=== PATIENT | female | born 1990 | race Caucasian/White ===

== ENCOUNTER 2016-06-13 04:05 | Inpatient (IN) | payer OTHER ==
[~2016-06-13] VITALS: Ht 170.2 cm; Wt 79.4 kg
[~2016-06-13 04:05] MED LIST: CHOL40003 PO; DOCU-41 PO; IBUP-1827 PO; PREN-20 PO
[2016-06-13] MEDS ORDERED: Oxytocin 30 Units/500 mL LR Premix IV ONE (04:30)
[2016-06-13] MEDS ORDERED: Lactated Ringer's 1,000 ML IV ONE (04:30)
[2016-06-13] MEDS ORDERED: Lactated Ringer's 1,000 ML IV PRN (04:32)
[2016-06-13] MEDS ORDERED: Carboprost 250 mCg/mL Inj IM PRN ×2 (04:35→07:05)
[2016-06-13] MEDS ORDERED: Hemorrhage Kit, Post Partum XX ONE ×2 (04:35→07:05)
[2016-06-13] MEDS ORDERED: Sodium Chloride LOK Flush 10 mL Syringe IVFLUSH PRN (04:35)
[2016-06-13] MEDS ORDERED: Methylergonovine 0.2 mg/mL Inj IM PRN ×2 (04:35→07:05)
[2016-06-13] MEDS ORDERED: Oxytocin 30 Units/500 mL LR 30 UNITS in IV Premix 1 EACH IV PRN ×2 (04:35→07:05)
[2016-06-13] MEDS ORDERED: Oxytocin 10 Unit/mL Inj IM PRN ×2 (04:35→07:05)
[2016-06-13 04:58] LABS: Mean Corpuscular Hemoglobin 32.6 pg (27.0-35.0); Mean Corpuscular Volume 94.7 fL (81-100)
[2016-06-13] MEDS ORDERED: Lactated Ringer's 500 ML IV ONE (05:18)
[2016-06-13] MEDS ORDERED: Lactated Ringer's 1,000 ML IV SCH ×2 (05:18→07:05)
[2016-06-13] MEDS ORDERED: Ondansetron 2 mg/mL 2 mL Inj IVPUSH PRN (05:20)
[2016-06-13] MEDS ORDERED: EPHEDrine Sulfate 50 mg/mL Inj IVPUSH PRN (05:20)
[2016-06-13] MEDS ORDERED: fentaNYL-PF 50 mCg/mL 2 mL Inj IVPUSH PRN (05:20)
[2016-06-13] MEDS ORDERED: fentaNYL 2 mCg/mL-Bupiv 0.125% 100 ML EPIDURAL SCH (05:20)
[2016-06-13] MEDS ORDERED: Atropine 1 mg/10 mL (Code) Syringe IVPUSH PRN (05:20)
--- NOTE | 2016-06-13 05:52 | PCM.ANEPRE ---
Anesthesia Pre-Op Review Additional Comments Asked to come place epidural. Patient 9cm. Plan CSE or SAB. On my arrival providers in room concerned about decelerations and that delivery needed to proceed expeditiously, so no neuraxial block placed. Frantz Javed MD Jun 13, 2016 05:52
[2016-06-13] MEDS ORDERED: LANOlin HPA 7 Gm Ointment TOPICAL PRN (07:05)
[2016-06-13] MEDS ORDERED: Witch Hazel-Glycerin Pads TOPICAL PRN (07:05)
[2016-06-13] MEDS ORDERED: Benzocaine (Dermoplast) 20% 60 Gm Spray TOPICAL PRN (07:05)
[2016-06-13] MEDS ORDERED: oxyCODONE-Acetamin 5-325 mg Tablet PO PRN (07:05)
[2016-06-13] MEDS: Ascorbic Acid 500 mg Tablet PO SCH ×2 (08:27→20:35)
--- NOTE | 2016-06-13 08:27 | OP ---
[address] [address] OPERATIVE REPORT PATIENT: ELVA JOHNSON : 1990 MR#: [id number] ADMIT: 06/13/2016 JOB ID: [id number] DATE OF SURGERY: 06/13/2016 CHIEF DIAGNOSIS: Precipitous labor within less than 3 hours of presentation to triage. PREOPERATIVE DIAGNOSIS(ES): A 26-year-old 4, para 3-0-0-3, at 40 weeks 4 days gestational age presented in active labor. Developed category 2 heart tracing managed with intrauterine resuscitation measures. Internal IUPC and scalp electrode inserted after artificial rupture of membranes. Progressed to fully dilated, +3 station. POSTOPERATIVE DIAGNOSIS(ES): A 26-year-old 4, para 3-0-0-3, at 40 weeks 4 days gestational age presented in active labor. Developed category 2 heart tracing managed with intrauterine resuscitation measures. Internal IUPC scalp electrode inserted after artificial rupture of membranes. Progressed to fully dilated, +3 station. PROCEDURE: Spontaneous vaginal delivery. SURGEON: Alex Leonrad MD ANESTHESIA: None. ESTIMATED BLOOD LOSS: 300 cc. COMPLICATIONS: None. FINDINGS: single viable male with Apgars 9/9. Weight is still pending. DESCRIPTION OF PROCEDURE: The patient started to push efficiently. Infant head delivered in left occiput anterior position. Tight nuchal cord x1 was noted, clamped and cut at the level of the baby's neck and this released the anterior shoulder as well as the posterior shoulder and rest of the body followed. The baby delivered and placed over mom's chest. Placenta followed spontaneously. Upon inspection, it was noted to be intact with three-vessel cord marginally inserted. Firm uterine fundus at the end of delivery. Inspection of the perineum revealed a second-degree perineal laceration at 5 o'clock and 7 o'clock positions. Total of 10 cc of 1% lidocaine injected for local analgesia and lacerations were repaired using 3-0 chromic and 3-0 Vicryl sutures. Good hemostasis is assured. The patient tolerated the procedure well. Sponge, needle, instrument counts were correct x2. Mom and baby recovering in a stable condition in labor and delivery room. Dr. Leonard was present and scrubbed for the entire procedure. [facility]
[2016-06-13] MEDS ORDERED: Acyclovir 400 mg Tablet PO SCH (08:30)
[2016-06-13] MEDS ORDERED: Sodium Chloride LOK Flush 10 mL Syringe IVFLUSH SCH (08:30)
--- NOTE | 2016-06-13 08:58 | HP ---
[address] [address] HISTORY AND PHYSICAL PATIENT: ELVA JOHNSON : 1990 MR#: [id number] ADMIT: 06/13/2016 JOB ID: [id number] DATE OF ADMISSION: 06/13/2016 ADMISSION DIAGNOSIS: Active labor at term. HISTORY OF PRESENT ILLNESS: The patient is a 26-year-old, 4, para 3-0-0-3, at 40 weeks and 4 days gestational age, admitted in active labor. Presented to triage with bulging membranes and fully dilated cervix, with contractions. Denied any leakage of fluid, denied any vaginal bleeding. Reports movements. PAST OBSTETRICAL HISTORY: 12011: Full-term with spontaneous vaginal delivery. 2- 2012: 38 weeks with spontaneous vaginal delivery. 32014: 40 weeks with spontaneous vaginal delivery. No complications with all the above deliveries. 4- The current . PAST GYNECOLOGIC HISTORY: Denied any history of abnormal Pap smears. Denied any history of STDs. 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 ALLERGIES: No known drug allergies. MEDICATIONS: vitamins. SOCIAL HISTORY: Denied any alcohol consumption. Denied any drugs of abuse. Denies any cigarette smoking. LABORATORIES: O-positive, antibody negative, rubella immune, varicella immune, serology nonreactive, hepatitis B surface antigen negative. HIV nonreactive. GBS cultures negative. PHYSICAL EXAMINATION: The patient is alert, oriented x3. Vital signs are 134/87 for blood pressure, respirations are 14, pulse is 95, temperature 36.3 degrees centigrade. Heart is regular rate and rhythm. Positive S1, S2. Lungs: Clear to auscultation bilaterally. Abdomen: Gravid uterus, nontender. Positive bowel sounds. Lower extremities: No calf tenderness appreciated bilaterally. Cervical exam: Bulging membranes. Artificial rupture of membranes, light meconium obtained. Intrauterine pressure catheter and scalp electrode were inserted. After rupture of the membranes the cervical exam was 9 cm dilated, 90% effaced, -3 station, vertex presentation. heart tracing showing a baseline of 115 beats per minute, positive accelerations with some variable decels, andrew of 60, back to the baseline. This is why the decision was made to artificially rupture membranes and insert internals to evaluate category 2 heart tracing. After doing so, baby had early decels to andrew of 60 beats per minute, back to the baseline, that changed to 110 beats per minute, some variable decels as well, andrew of 60 beats per minute, back to the baseline. Oxygen and position changes with IV hydration was started. ASSESSMENT/PLAN: Patient is a 26-year-old, 4, para 3-0-0-3, at 40 weeks and 4 days gestational age admitted in active labor. 1. Category 2 heart tracing, intrauterine resuscitation measures started with insertion of IUPC and scalp electrode after artificial rupture of membranes. 2. Discussed labor analgesia. Patient opted for natural . 3. GBS cultures negative. 4. Expectantly manage patient's labor. All the above discussed in details with the patient, who agreed to the plan. JEANNETTE
[2016-06-14 06:43] LABS: Mean Corpuscular Hemoglobin 32.3 pg (27.0-35.0); Mean Corpuscular Volume 96.8 fL (81-100)
--- NOTE | 2016-06-14 07:40 | PCM.PNOBPP ---
Subjective Date of Service Jun 14, 2016 Post : Spontaneous Vaginal Delivery Visit History Libertad is a G4 now P4 who presented to the center on 06/13/16 at 40weeks and 4 days gestation with contractions. She had a precipitous delivery of a male . She is not a GBS carrier, thus antibiotic prophylaxis was not given. Subjective Libertad reports that she is feeling well and wanting to go home. She has been breast feeding without difficulty, eating without nausea, and ambulating within the room with ease. Lochia: Light Pain Management: PO pain meds (ibuprofen only), No or Minimal Pain Gastrointestinal: Good Appetite, No N/V, Passing Flatus Postop Activity: Ambulating Independently, Ambulating in Room Only Group B Strep Results: Negative Rubella: Immune Blood Type: O RH Type: Positive Labs Laboratory Tests 06/14/16 05:52: White Blood Count 14.0, Red Blood Count 2.85, Hemoglobin 9.2, Hematocrit 27.6, Mean Corpuscular Volume 96.8, Mean Corpuscular Hemoglobin 32.3, Mean Corpuscular Hemoglobin Concent 33.3, Red Cell Distribution Width 12.6, Platelet Count 244 Exam Vital Signs Vital Signs BP 116/66mmHg HR 80 RR 16 Temp 36.5 Vital Signs: VS reviewed, stable Exam Abdomen: Fundus firm (2 fingerbreadths inferior to the umbilicus) : Voiding without difficulty Extremities: No tenderness/swelling, No edema Lungs: Clear to Auscultation, Normal Air Movement Heart: Regular Rate/Rhythm, No Murmurs/Rubs/Gallops General: Alert, Oriented X3, Cooperative, No Acute Distress OB Post Assessment/Plan Assessment Libertad is doing very well post Problems: (1) Spontaneous vaginal delivery Status: Acute ICD Code: O80 (2) Labor, precipitous Status: Acute ICD Code: O62.3 Pain Evaluation: Adequate Pain Control Post plan: Continue routine post care, Anticipate discharge home today Attending Statement I saw patient. I agree with above evaluation and plan Cassie Betancourt DO Jun 14, 2016 07:40 Rain Landa MD Jun 14, 2016 16:04
[2016-06-14] MEDS ORDERED: IBUP-1827 PO (07:55)
[2016-06-14] MEDS ORDERED: DOCU-41 PO (07:55)
[2016-06-14] MEDS ORDERED: Ascorbic Acid PO (07:55)
[2016-06-14] MEDS ORDERED: FERR-74 PO (07:55)
--- NOTE | 2016-06-14 08:02 | PCM.DIOB ---
Cassie Betancourt DO 06/14/16 0802: Obstetrical Disch Instruction Date of Service: Jun 14, 2016 Dates of Hospitalization Date of Hospital Admission Jun 13, 2016 at 04:26 Providers Admitting Physician: Vaibhav Jones MD Primary Care Physician: Marycarmen Monson MD Attending Physician: Vaibhav Jones MD Discharge Diagnosis Problems: (1) Spontaneous vaginal delivery Status: Acute ICD Code: O80 (2) Labor, precipitous Status: Acute ICD Code: O62.3 Diet Discharge Diet: No restrictions Activity Discharge Activity-General: Pelvic Rest for 6 weeks, Be up and about, Balance rest and activity Dressing and Incisional Care Hygiene: May shower, NO bathtub, hot tub or whirlpool, Perineal care, Dermoplast spray, Witch Alexandra pads Additional Instructions Discharge Instructions Continue to take your once daily vitamin as long as you are breast feeding Please take the iron and vitamin c together for your anemia. For pain, take 1 tablet of ibuprofen by mouth every 6 hours as needed. Iron can give you constipation so you have also been given a prescription for docusate to keep you regular. Be sure to follow up [facility] at [facility]. Pelvic rest for 6 weeks (nothing per vagina including intercourse, tampons) If you have a fever greater than 100.4, please call [facility]. There is always someone correctional food service supervisor to talk to. If you have an increase in bleeding, call [facility]. If you have a lot of bleeding suddenly, especially if you have symptoms of dizziness & weakness with it, get emergency help. If you start experiencing extreme depression, especially if you feel that you are a danger to yourself or your family, seek emergency help. You have been through a lot -- BE SURE TO TAKE CARE OF YOURSELF. Follow Up Plan Follow Up Plan Please call to schedule your 6 week post check with [facility] Follow-up Provider (F9): Vaibhav Jones MD Follow-up appointment: Weeks (6) Call your provider for: Fever or Chills, Shortness of breath, Heavy vaginal bleeding, Heavy bleeding, Epigastric pain, Excessive constipation, Vaginal discomfort, Red painful breasts Rain Landa MD 06/14/16 1604: Obstetrical Disch Instruction Attending Statement I saw patient and agree with above evaluation and plan Cassie Betancourt DO Jun 14, 2016 08:02 Rain Landa MD Jun 14, 2016 16:04
--- NOTE | 2016-06-14 08:29 | PCM.DC.OB ---
Obstetrical Discharge Summary Date of Service Jun 14, 2016 Date of hospital admission Jun 13, 2016 at 04:26 Date of Discharge: Jun 14, 2016 Providers Admitting Physician: Vaibhav Jones MD Primary Care Physician: Marycarmen Monson MD Attending Physician: Vaibhav Jones MD Problems: (1) Spontaneous vaginal delivery Status: Acute ICD Code: O80 (2) Labor, precipitous Status: Acute ICD Code: O62.3 Brief History and Physical: Libertad is a G4 now P4 who presented to the center on 06/13/16 at 40weeks and 4 days gestation with contractions. She had a precipitous vaginal delivery of a male infant with a 2nd degree laceration at 5 oclock on the perineum, this was repaired immediately following the delivery. She is not a GBS carrier, thus antibiotic prophylaxis was not given. She has done well post . She has been ambulating independently with ease, breast feeding without difficulty, voiding without difficulty, eating without nausea. She denies any pain with ibuprofen use. Her lochia is light and umbilicus is 2 fingerbreadths inferior to the umbilicus. No pedal edema. Normal vital signs. ([Ascorbic Acid]) 500 MG TABLET 500 MG PO DAILY Prescribed by: CASSIE BETANCOURT DO Cholecalciferol (Vitamin D3) (Vitamin D3) 4,000 Unit Capsule 4,000 UNIT PO ( Reported) Docusate Sodium (Colace) 100 Mg Capsule 100 MG PO DAILY Prescribed by: RAIN LANDA MD Docusate Sodium (Colace) 100 Mg Capsule 100 MG PO BID Prescribed by: CASSIE BETANCOURT DO Ferrous Sulfate (Feosol) 325 Mg Tablet 325 MG PO DAILY Prescribed by: CASSIE BETANCOURT DO Ibuprofen (Ibuprofen) 600 Mg Tablet 600 MG PO Q6H PRN PRN For Mild Pain Prescribed by: RAIN LANDA MD Ibuprofen (Ibuprofen) 600 Mg Tablet 600 MG PO Q6H PRN PRN For Mild Pain Prescribed by: CASSIE BETANCOURT DO Pnv with Ca,No.71/Iron/FA ( Vitamin Tablet) 1 Each Tablet 1 EACH PO ( Reported) Disposition Home with her and son Discharge Diet: No restrictions Discharge Activity-General: Pelvic Rest for 6 weeks, Try not to overdue, Be up and about, Balance rest and activity Patient instructions Continue to take your once daily vitamin as long as you are breast feeding Please take the iron and vitamin c together for your anemia. For pain, take 1 tablet of ibuprofen by mouth every 6 hours as needed. Iron can give you constipation so you have also been given a prescription for docusate to keep you regular. Be sure to follow up in 6 weeks at [facility] for a post check. Pelvic rest for 6 weeks (nothing per vagina including intercourse, tampons) If you have a fever greater than 100.4, please call [facility]. There is always someone promotions specialist to talk to. If you have an increase in bleeding, call [facility]. If you have a lot of bleeding suddenly, especially if you have symptoms of dizziness & weakness with it, get emergency help. If you start experiencing extreme depression, especially if you feel that you are a danger to yourself or your family, seek emergency help. You have been through a lot -- BE SURE TO TAKE CARE OF YOURSELF. Attending Statement: agree with above plan Cassie Betancourt DO Jun 14, 2016 08:23 Rain Landa MD Jul 11, 2016 18:54
[2016-06-14] MEDS: Ascorbic Acid 500 mg Tablet PO SCH (08:43)
[2016-06-14 10:01] VITALS: BP 126/77; PULSE 91; RESP 16
== END 2016-06-14 14:44 | disposition home or self-care (01) | DRG 560 ==
LOC: FBCO 04:05 → FBC 04:26
PROVIDERS: ADMIT Obstetrics & Gynecology; ATTEND Obstetrics & Gynecology
PROC: 0KQM0ZZ Repair Perineum Muscle, Open Approach (ICD-10-PCS; principal; 2016-06-13)
PROC: 10E0XZZ Delivery of Products of Conception, External Approach (ICD-10-PCS; 2016-06-13)
PROC: 10907ZC Drainage of Amniotic Fluid, Therapeutic from Products of Conception, Via Natural or Artificial Opening (ICD-10-PCS; 2016-06-13)
PROC: 10H07YZ Insertion of Other Device into Products of Conception, Via Natural or Artificial Opening (ICD-10-PCS; 2016-06-13)
DX: O70.1 Second degree perineal laceration during delivery (principal); O76 Abnormality in fetal heart rate and rhythm complicating labor and delivery; O62.3 Precipitate labor; O69.1XX0 Labor and delivery complicated by cord around neck, with compression, not applicable or unspecified; Z37.0 Single live birth; Z3A.40 40 weeks gestation of pregnancy

== ENCOUNTER 2017-02-28 20:59 | Emergency (ER) | payer OTHER ==
[~2017-02-28] VITALS: Ht 170.2 cm; Wt 71.8 kg
[~2017-02-28 20:59] MED LIST changes: +Ascorbic Acid PO; +FERR-74 PO
[2017-02-28 21:12] VITALS: BP 136/85; PULSE 102; RESP 12; O2SAT 98
--- NOTE | 2017-02-28 21:36 | ED.REPORT ---
HPI- Female Date of Service Feb 28, 2017 ED Provider: Mayank Bentley DO The pt is a 26 y/o, 11 week , female w/ a hx of hypothyroidism presenting to the ED complaining of vaginal spotting beginning 4 days ago. She describes heavier vaginal bleeding w/ tissue discharge, and abdominal cramping beginning today. Nursing Notes Stated Complaint: POSS MISCARRIAGE Chief Complaint: Vaginal bleeding Nursing Notes Reviewed: Yes Allergies: Coded Allergies: No Known Allergies (Unverified Allergy, Unknown, 02/09/15) Scheduled ([Ascorbic Acid]) 500 MG TABLET 500 MG PO DAILY Docusate Sodium (Colace) 100 Mg Capsule 100 MG PO DAILY Docusate Sodium (Colace) 100 Mg Capsule 100 MG PO BID Ferrous Sulfate (Feosol) 325 Mg Tablet 325 MG PO DAILY Scheduled PRN Ibuprofen (Ibuprofen) 600 Mg Tablet 600 MG PO Q6H PRN PRN For Mild Pain Ibuprofen (Ibuprofen) 600 Mg Tablet 600 MG PO Q6H PRN PRN For Mild Pain Miscellaneous Medications Cholecalciferol (Vitamin D3) (Vitamin D3) 4,000 Unit Capsule 4,000 UNIT PO Pnv with Ca,No.71/Iron/FA ( Vitamin Tablet) 1 Each Tablet 1 EACH PO General Time Seen by MD: 21:35 Chief Complaint Vaginal bleeding... (Moderate) Hx Obtained From: Patient Arrived By: Walk-in Sudden in Onset?: Yes Onset Occurred: 5 - 8 hours ago Symptom Duration: Since onset Recent Healthcare: No recent hospitalization, Recent doctor visit Similar Sx Previous: Yes Past Medical History Past Medical History Hypothyroidism - as of 02/28/17 Past Surgical History None reported Smoking History Never Smoker Social History Alcohol Use: Denies alcohol use Drug Use: Denies drug use Other Social History: Good social support Ambulatory Status Independent Review of Systems + Abdominal cramping; Basic Review of Systems Eyes: Vision NL Respiratory: No shortness of breath Cardiovascular: No chest pain, No dyspnea on exertion Allergy / Immune: No allergy Constitutional: Denies: Chills, Fever GI: Denies: Diarrhea Female: Reports: Vaginal bleeding - abnl (w/ tissue ), Denies: Dysuria, Flank pain Musculoskeletal: Denies: Back pain Skin: Denies Bruising Neurologic: Denies: Abnormal movement Complete sys rev & neg: except as marked. Physical Exam Initial Vital Signs Vital Signs (First) Date Time Temp Pulse Resp B/P Pulse Ox O2 Delivery O2 Flow Rate FiO2 02/28/17 21:12 37.3 102 12 136/85 98 Room Air Initial VS: Reviewed General/Constitutional: Well-developed, Well-nourished Head / Eyes: Atraumatic, Normocephalic, PERRL ENT: Mucous membranes moist, Conjunctiva normal, No scleral icterus Neck: Supple, Non-tender, Full range of motion Respiratory: Breath sounds normal, Clear to auscultation, No respiratory distress Extremities: Vascular intact, Neuro intact, No swelling, No tenderness Skin: Warm, Dry, No cyanosis Neurologic: Alert, Oriented, Nonfocal Psychiatric: Mood/affect normal, Behavior normal, Normal thought content Female Genitourinary: Warehouse Incentive Selector present Pelvic Exam: Positive: Cervical motion tend... (Moderate) Os open; L adnexal tenderness; Clots visualized at cervical opening; Cardiovascular: Regular rhythm, Heart sounds NL Heart Rate / Rhythm: Positive: Tachycardia Interpretation & Diagnostics US pelvic and transvag: Impression: Intrauterine gestational sac, w/ a yolk sac and no definite pole at this time. Continued followup is recommended. Estimated ultrasound age 5 week 5 days. Small subchorionic bleed noted within the fundal region. Ovarian vascularity identified bilaterally. 2.2 cm R corpus luteum. Trace fluid adjacent to the R ovary. This report was transmitted to the emergency room at 03/01/17 - 12:22:53 AM PDT. Lab Results Interpretation Result Diagram: 02/28/17224402/28/17 2245 Test 02/28/17 22:45 White Blood Count 11.7th/mm3 (3.8-10.1) Red Blood Count 4.33mil/mm3 (3.90-5.20) Hemoglobin 13.6g/dL (12.0-15.6) Hematocrit 38.9% (35.0-46.0) Mean Corpuscular Volume 89.8fL (81-100) Mean Corpuscular Hemoglobin 31.4pg (27.0-35.0) Mean Corpuscular Hemoglobin Concent 35.0% (32.0-37.0) Red Cell Distribution Width 11.8% (12.3-15.4) Platelet Count 346bil/L (150-400) Neutrophils (%) (Auto) 81.8% (40-74) Lymphocytes (%) (Auto) 12.6% (14-46) Monocytes (%) (Auto) 4.8% (4-12) Eosinophils (%) (Auto) 0.3% (0-5) Basophils (%) (Auto) 0.3% (0-3) Sodium Level 137mEq/L (134-144) Potassium Level 4.0mEq/L (3.5-5.2) Chloride Level 101mEq/L (97-108) Carbon Dioxide Level 20mmol/L (18-29) Blood Urea Nitrogen 19mg/dL (6-20) Creatinine 0.63mg/dL (0.57-1.00) Estimat Glomerular Filtration Rate 161mL/min (>59) Glucose Level 138mg/dL (60-99) Calcium Level 10.1mg/dL (8.5-10.1) Total Bilirubin 0.2mg/dL (0.0-1.2) Aspartate Amino Transf (AST/SGOT) 11U/L (0-50) Alanine Aminotransferase (ALT/SGPT) 9U/L (0-32) Alkaline Phosphatase 50U/L (25-150) Total Protein 7.9g/dL (6.4-8.4) Albumin 4.9g/dL (3.4-5.0) HCG Beta Subunit 38534xSL/mL Hold Sánchez Top Tube Received (Received) Pulse Oximetry Interpretation Pulse Oximetry Interpretation: 98% US Focused OB Unable to visualize intrauterine Exam Performed by: ED physician Exam Type: Diagnostic Clinical Category: Initial exam Re-Eval/Medical Decision Med Decision/Clinical Course Ultrasound shows a 5 week 5 day yolk sac. This is not at all consistent with her dates. It may be that her dates are off she has a blighted ovum or she is in the midst of a miscarriage. No signs of ruptured ectopic . No signs of active labor. No ongoing bleeding. Her os is open and there is tissue at her os so it would appear that a miscarriage is certainly a possibility. She feels well and stable for discharge home she is hemodynamically stable. She will provided a short course of [place] for the pain and close outpatient follow-up. Source of Hx: Old records Re-Evaluation/Progress #1: Time of Eval: 22:19 Re-Evaluation/Progress Note: Performed pelvic exam w/ choker hooker present Re-Evaluation/Progress #2: Time of Eval: 01:34 Re-Evaluation/Progress Note: Discussed US results. F/U instructions and RTER warnings given. All questions addressed. Counseled Regarding: Diagnosis, Lab results, Need for follow-up, When/why to return to ED Discharge & Departure Impression: Primary Impression: Threatened Disposition: Home Discharge Condition All VS Reviewed: Yes Condition: Stable Patient Instructions: Miscarriage (ED), Threatened Miscarriage (ED) Additional Instructions: The ultrasound demonstrates a 5 week and 5 day gestational sac. This does not match with your dates. You may be in the beginnings of a miscarriage. It is recommended however that you have close follow-up and serial ultrasounds. I recommended ultrasound next week. If you have any heavy bleeding or any increase in pain then do not hesitate to come back to the emergency department. If you soak more than a pad an hour for 3 consecutive hours then come right back in. You may take 1-2 [place] every 6 hours as needed for pain. Call your doctor or the referral lay out and detail drafter on Thursday for a follow-up. Do not drive or drink alcohol or consume acetaminophen while taking the [place]. Return if any problems or any new or worsening symptoms. Referrals: Marycarmen Monson MD (PCP) Alex Leonard MD (Family) Randall Qiu MD Scribe Attestation Portions of this note were transcribed by Dustin Garcia. I, Dr. Bentley personally performed the history, physical exam and medical decision-making; I reviewed and confirmed the accuracy of the information in the transcribed note. copies to: Alex Leonard MD; Marycarmen Monson MD, Todd P DO Feb 28, 2017 21:36 Dustin Garcia Feb 28, 2017 22:36
[2017-02-28] MEDS ORDERED: fentaNYL-PF 50 mCg/mL 2 mL Inj IVPUSH PRN (22:30)
[2017-02-28 22:49] LABS: Mean Corpuscular Hemoglobin 31.4 pg (27.0-35.0); Mean Corpuscular Volume 89.8 fL (81-100); NEUTROPHILS % (AUTO) 81.8 % (40-74); Platelet Count 346 bil/L (150-400)
[2017-02-28 22:50] LABS: BASOPHILS % (AUTO) 0.3 % (0-3); EOSINOPHILS % (AUTO) 0.3 % (0-5); MONOCYTES % (AUTO) 4.8 % (4-12)
[2017-03-01] MEDS ORDERED: _HYDROcodone/APAP 5-325 mg Tablet PO PRN (01:35)
[2017-03-01 01:53] VITALS: BP 119/78; PULSE 99; RESP 18; O2SAT 100
--- NOTE | 2017-03-01 13:47 | DRSVH ---
PROCEDURE: US OB<14 WKS+OB TRANSVAG INDICATIONS: , pain and bleeding, 11 weeks OUTSIDE/PRIOR DATING DATA: Last menstrual period (LMP): 12/13/16. LMP-based estimated date of delivery (ESTEPHANIE): 09/19/17 First dating scan (date and location): 02/28/17. Estimated date of delivery (ESTEPHANIE) from first dating scan: 10/26/17. TECHNIQUE: Real-time scanning was performed of the fetus and maternal pelvic organs, with image documentation. Endovaginal scanning was also performed to better visualize the fetus and maternal ovaries. COMPARISON: None. FINDINGS: Embryo: An intrauterine gestational sac is identified. It measures 9 mm corresponding to 5 weeks 5 da ys. A yolk sac is identified. No pole or heart sounds are identified. Measurement variability in dating: +/- 4 weeks by LMP, +/- 7 days by mean sac diameter (use before 6 weeks gestation if crown-rump length not able to be measured), +/- 5 days by crown-rump length (up t o 8 weeks 6 days gestation), +/- 7 days by crown-rump length (up to 13 weeks 6 days gestation). Maternal organs: Ovaries demonstrate a right corpus luteal cyst. Limited images through the kidneys demonstrate no hydronephrosis. IMPRESSION: 1. Intrauterine gestational sac with visualized yolk sac. No pole or heart tones are identified . Ultrasound gestational age corresponds to 5 weeks 5 days by dates. Recommend continued ultrasound a nd clinical followup with beta-hCG levels. Dictated by: Mariam Storey M.D. on 03/01/2017 at 13:42 Approved by: Mariam Storey M.D. on 03/01/2017 at 13:45
== END 2017-03-01 01:54 | disposition home or self-care (01) ==
LOC: SED 20:59
DX: O20.0 Threatened abortion (principal); E03.9 Hypothyroidism, unspecified; Z3A.11 11 weeks gestation of pregnancy